=== PATIENT | female | born 1950 | race Caucasian/White ===

== ENCOUNTER → 2017-05-09 | Outpatient (CLI) | payer MEDICARE, OTHER ==
[~2017-05-09] MED LIST: ASPI-1471 PO; ATOR40TA69 PO; BAC PO; CALC1TAB32 PO; CALC600T63 PO; CALC625T80 PO; CIP500 PO; CIPR-214 PO; COQ; DOXY25TA11 PO; EZET10TA41 PO; FAM20 PO; FAMO-67 PO; GEMF600T89 PO; GLUC100026 PO; IBU600 PO; LEVO75TA68 PO; LEVO88TA45 PO; LOR5/325 PO; MULT1TAB64 PO; OMEP-218 PO; PHENA200 PO; PIRO-91 PO; PRA20 PO; PSYL0.5235 PO; UBID400C2 PO; [UNRECOGNIZED DRUG - OTHER]
--- NOTE | 2017-05-09 15:31 | RADIOLOGY IMAGING REPORT ---
FACILITY: [facility] PATIENT NAME: Alee Antoine : 1950 MR: [id number] V: [id number] EXAM DATE: ORDERING PHYSICIAN: TERESO PACK TECHNOLOGIST: Location: [facility] [place] Patient: Alee Antoine : 1950 Visit/Account:[id number] Date of Sevice: 05/09/2017 DEXA Scan Clinical history: Postmenopausal estrogen deficiency. Comparison: DEXA scan from 06/23/2007. LUMBAR SPINE: The bone mineral density (BMD) measured from L1-L4 correlates with a Z-score of -0.6 and a T-score of -1.1 which is osteopenia as defined by the World Health Organization. The corresponding risk of fra cture in the lumbar spine is 2-3 times increased compared with a young adult reference population. T his value has decrease by 3.5 % since the prior study. More than 5% change is considered significant . HIP: Bone mineral density (BMD) measured in the LEFT total hip region correlates with a Z-score 1.4 and a T-score of 0.9 which is normal as defined by the World Health Organization. The corresponding risk of fracture in the hip is Not i ncreased compared to a young adult reference population. This value has decrease by 0.5 % since the p rior study. More than 5% change is considered significant. T score left femoral neck -0.2 Bone mineral density (BMD) measured in the Femoral Neck region measures 1.010 g/cm?. IMPRESSION: 1. Lumbar spine: Osteopenia. There has been 3.5% decrease in the bone mineral density since the pre vious exam. 2. Left Total Hip: Normal. There has been 0.5% decrease in the bone mineral density since the previ ous exam. 3. Femoral Neck: Bone Mineral Density is 1.010 g/cm? The next DEXA scan of this patient should include the following sites: L1-L4 and the left hip. FRAX? WHO Fracture Risk Assessment Tool link: <http://www.shef.ac.uk/FRAX/tool.jsp?locationValue=9> PLEASE NOTE: 1) The World Health Organization defines low BMD as follows: T-score Normal > -1 Osteopenia < -1 and > -2.5 Osteoporosis < -2.5 without fractures Established osteoporosis < -2.5 with fractures 2) In general, you may wish to consider: Diagnosis Treatment Follow-up DEXA Normal BMD Prevention 2-3 years Osteopenia Prevention/therapy 1-2 years Osteoporosis Therapy Yearly 3) Fracture risk estimated from the T-score is more accurate for vertebral fractures (often spontane ous) than for hip fractures. Report Dictated By: Nancy Kingsley MD at 05/09/2017 3:25 PM Report E-Signed By: Nancy Kingsley MD at 05/09/2017 3:26 PM WSN:[email or web address]
== END ==
LOC: RAD 02:05
PROVIDERS: ATTEND Emergency Medicine
DX: M85.88 Other specified disorders of bone density and structure, other site (principal); Z78.0 Asymptomatic menopausal state
CPT/HCPCS: 77080

== ENCOUNTER → 2017-07-24 | Outpatient (CLI) | payer MEDICARE, OTHER ==
--- NOTE | 2017-07-25 14:01 | RADIOLOGY IMAGING REPORT ---
FACILITY: [facility] [place] PATIENT NAME: QUITA MARAVILLA : [id number] MR: [id number] V: [id number] EXAM DATE: [id number] ORDERING PHYSICIAN: TERESO PACK TECHNOLOGIST: Whit Soni PROCEDURE:BILATERAL DIGITAL SCREENING MAMMOGRAM WITH CAD ASSISTED INTERPRETATION & 3D TOMOSYNTHESIS COMPARISON:Prior mammograms 06/28/16, 06/27/15, 06/14/14, 06/02/13, 04/16/12, 03/30/11. INDICATIONS:SCREENING FINDINGS: Small amount of fibroglandular tissue is seen throughout the breasts. The parenchymal pattern has remained stable allowing for difference in mammographic technique & patient positioning. There is no evidence of malignant appearing mass, malignant appearing calcifications or other secondary sign of malignancy in either breast. DIAGNOSTIC CATEGORY 1--NEGATIVE. RECOMMENDATIONS: ROUTINE MAMMOGRAM AND CLINICAL EVALUATION. IMPRESSION: BIRADS 1: Negative No significant abnormality is seen. Dictated by: Nancy Kingsley M.D. on 07/24/2017 at 17:13 Transcribed by: ZURI on 07/25/2017 at 8:22 Approved by: Nancy Kingsley M.D. on 07/25/2017 at 14:00 [facility]
== END ==
LOC: MAMO 01:06
PROVIDERS: ATTEND Emergency Medicine
DX: Z12.31 Encounter for screening mammogram for malignant neoplasm of breast (principal)
CPT/HCPCS: 77063; 77067

== ENCOUNTER → 2018-08-19 | Outpatient (CLI) | payer MEDICARE, OTHER ==
[~2018-08-19] MED LIST changes: +CIPR-344 PO; +CYCL10TA29 PO; +HYDR-385 PO; +METH4TAB66 PO
--- NOTE | 2018-08-20 16:00 | RADIOLOGY IMAGING REPORT ---
FACILITY: [facility] [place] PATIENT NAME: QUITA MARAVILLA : [id number] MR: [id number] V: [id number] EXAM DATE: [id number] ORDERING PHYSICIAN: TERESO PACK TECHNOLOGIST: Whit Soni PROCEDURE: BILATERAL DIGITAL SCREENING MAMMOGRAM WITH CAD ASSISTED INTERPRETATION & 3D TOMOSYNTHESIS REASON FOR STUDY: Screening COMPARISON: 07/24/17 VIEWS OBTAINED: 2D & 3D full field CC & MLO BREAST DENSITY: Breast tissue demonstrates scattered fibroglandular elements. MAMMOGRAM FINDINGS: There is no suspicious mass, calcification or architectural distortion in the Right or Left breast. DIAGNOSTIC CATEGORY 1--NEGATIVE. RECOMMENDATIONS: ROUTINE YEARLY MAMMOGRAM AND CLINICAL EVALUATION. IMPRESSION: BIRADS 1: Negative. No mammographic evidence for malignancy Dictated by: Murray Cedillo M.D. on 08/20/2018 at 13:40 Transcribed by: ELAINE on 08/20/2018 at 15:05 Approved by: Murray Cedillo M.D. on 08/20/2018 at 15:59 [facility]
== END ==
LOC: MAMO 00:39
PROVIDERS: ATTEND Emergency Medicine
DX: Z12.31 Encounter for screening mammogram for malignant neoplasm of breast (principal); Z80.3 Family history of malignant neoplasm of breast
CPT/HCPCS: 77063; 77067